=== PATIENT | male | born 1970 | race Caucasian/White ===

== ENCOUNTER 2016-05-26 16:50 | Inpatient (IN) | payer MEDICAID ==
[~2016-05-26] VITALS: Ht 160 cm; Wt 63.6 kg
[~2016-05-26 16:50] MED LIST: GABA-531 PO; LISI-662 PO; OLAN7.5T2 PO; VENL-68 PO
[2016-05-26] MEDS ORDERED: HALOPERIDOL 5 MG TABLET PO PRN (18:15)
[2016-05-26] MEDS ORDERED: PNEUMOCOCCAL VACCINE POLYVALENT 0.5 ML VIAL [PPSV23] IM ONE (18:45)
[2016-05-26 19:00] VITALS: BP 116/74
[2016-05-26 19:16] VITALS: BP 116/75
[2016-05-26] MEDS: GABAPENTIN 300 MG CAPSULE PO SCH (19:35)
[2016-05-26] MEDS: OLANZapine 7.5 MG TABLET PO SCH (20:20)
[2016-05-26] MEDS: LORazepam 2 MG TABLET PO PRN (20:21)
[2016-05-27 06:04] VITALS: BP 114/71
[2016-05-27 08:18] LABS: BASOPHILS % (AUTO) 0.4 % (0.0-2.0); EOSINOPHILS % (AUTO) 3.9 % (1.0-6.0); HEMATOCRIT 42.6 % (41-53); HEMOGLOBIN 14.2 g/dL (13.5-17.5); LYMPHOCYTES # (AUTO) 1.6 K/uL (1.0-4.8); LYMPHOCYTES % (AUTO) 36.7 % (22.0-44.0); MEAN CORPUSCULAR HEMOGLOBIN 28.8 pg (26.0-34.0); MEAN CORPUSCULAR HGB CONC 33.4 G/dL (31.0-37.0); MEAN CORPUSCULAR VOLUME 86 fL (80-100); MONOCYTES # (AUTO) 0.6 K/uL (0.1-1.0); MONOCYTES % (AUTO) 14.3 % (2.0-9.0); NEUTROPHILS % (AUTO) 44.7 % (40.0-70.0); PLATELET COUNT (AUTO) 239 K/uL (150-450); RED BLOOD CELL COUNT(AUTO) 4.94 MIL/uL (4.50-5.90); RED CELL DISTRIBUTION WIDTH 15.5 % (11.5-14.5); WHITE BLOOD COUNT (AUTO) 4.4 K/uL (4.5-11.0)
[2016-05-27 08:31] VITALS: BP 120/75
[2016-05-27 08:36] LABS: HEMOGLOBIN A1C 5.7 % (4.5-6.2)
[2016-05-27] MEDS: VENLAFAXINE HCL 150 MG ER CAPSULE PO SCH (08:39)
[2016-05-27] MEDS: LISINOPRIL 20 MG TABLET PO SCH (08:39)
[2016-05-27] MEDS: GABAPENTIN 300 MG CAPSULE PO SCH ×3 (08:39→16:14)
[2016-05-27] MEDS ORDERED: MAGNESIUM HYDROXIDE SUSPENSION 30 ML UDCUP PO PRN (09:00)
[2016-05-27] MEDS ORDERED: ACETAMINOPHEN 325 MG TABLET PO PRN (09:00)
[2016-05-27] MEDS ORDERED: CloNIDine HCL 0.1 MG TABLET PO PRN (09:00)
[2016-05-27] MEDS ORDERED: IBUPROFEN 600 MG TABLET PO PRN (09:00)
[2016-05-27] MEDS ORDERED: LOPERAMIDE HCL 2 MG CAPSULE PO PRN (09:00)
[2016-05-27] MEDS ORDERED: ONDANSETRON HCL 4 MG TABLET PO PRN (09:00)
[2016-05-27] MEDS ORDERED: BENZOCAINE/MENTHOL LOZENGE MM PRN (09:00)
[2016-05-27] MEDS ORDERED: BACITRACIN 28.4 GM OINTMENT TP PRN (09:00)
[2016-05-27] MEDS ORDERED: PETROLATUM,WHITE 71 GM JELLY TP PRN (09:00)
[2016-05-27] MEDS ORDERED: ALBUTEROL SULFATE HFA 90 MCG/PUFF 8 GM INHALER IH PRN (09:00)
[2016-05-27 09:12] LABS: ALANINE AMINOTRANSFERASE 18 U/L (12-78); ALBUMIN 3.1 g/dL (3.4-5.0); ANION GAP 6 mmol/L (8-16); ASPARTATE AMINOTRANSFERASE 23 U/L (15-37); BILIRUBIN,TOTAL 0.5 mg/dL (0.1-1.0); CALCIUM, TOTAL 8.3 mg/dL (8.8-10.5); CARBON DIOXIDE 30 mmol/L (22-29); CHLORIDE 104 mmol/L (98-107); CHOL/HDL RATIO 3.2 (4.2-7.3); CREATININE 0.84 mg/dL (0.60-1.30); GLOMERULAR FILTR. RATE CALC > 60 mL/min (>60); POTASSIUM 3.5 mmol/L (3.5-5.1); SODIUM SERUM 140 mmol/L (136-145); THYROID STIMULATING HORMONE 0.98 uIU/mL (0.36-3.74); TOTAL PROTEIN, SERUM 6.4 g/dL (6.4-8.2); UREA NITROGEN, BLOOD 17 mg/dL (7-18)
[2016-05-27 16:31] VITALS: BP 118/67
[2016-05-27] MEDS: OLANZapine 7.5 MG TABLET PO SCH (20:14)
[2016-05-28 01:20] VITALS: BP 112/70
[2016-05-28 06:53] VITALS: BP 114/76
[2016-05-28] MEDS: LORazepam 2 MG TABLET PO PRN ×4 (06:56→20:54)
[2016-05-28 08:40] VITALS: BP 123/72
[2016-05-28] MEDS: LISINOPRIL 20 MG TABLET PO SCH (08:46)
[2016-05-28] MEDS: VENLAFAXINE HCL 150 MG ER CAPSULE PO SCH (08:46)
[2016-05-28] MEDS: GABAPENTIN 300 MG CAPSULE PO SCH ×3 (08:46→16:48)
[2016-05-28 16:17] VITALS: BP 126/67
[2016-05-28] MEDS: OLANZapine 7.5 MG TABLET PO SCH (20:43)
[2016-05-29 05:46] VITALS: BP 126/80
[2016-05-29] MEDS: LORazepam 2 MG TABLET PO PRN ×3 (08:27→16:56)
[2016-05-29] MEDS: LISINOPRIL 20 MG TABLET PO SCH (08:27)
[2016-05-29] MEDS: GABAPENTIN 300 MG CAPSULE PO SCH ×3 (08:27→16:56)
[2016-05-29] MEDS: VENLAFAXINE HCL 150 MG ER CAPSULE PO SCH (08:27)
[2016-05-29 08:43] VITALS: BP 122/78
[2016-05-29 16:52] VITALS: BP 100/62
[2016-05-29] MEDS: ZOLPIDEM TARTRATE 10 MG TABLET PO PRN (20:19)
[2016-05-29] MEDS: OLANZapine 7.5 MG TABLET PO SCH (21:00)
[2016-05-30 04:28] VITALS: BP 124/90
[2016-05-30] MEDS: LORazepam 2 MG TABLET PO PRN ×4 (04:30→18:15)
[2016-05-30 08:20] VITALS: BP 130/90
[2016-05-30] MEDS: VENLAFAXINE HCL 150 MG ER CAPSULE PO SCH (09:14)
[2016-05-30] MEDS: LISINOPRIL 20 MG TABLET PO SCH (09:14)
[2016-05-30] MEDS: GABAPENTIN 300 MG CAPSULE PO SCH ×3 (09:14→16:28)
[2016-05-30 13:34] VITALS: BP 128/84
[2016-05-30] MEDS: MAG HYDROX/AL HYDROX/SIMETH ES 30 ML SUSPENSION UDCUP PO PRN (13:34)
[2016-05-30] MEDS: TraMADol HCL 50 MG TABLET PO PRN (13:34)
[2016-05-30 16:10] VITALS: BP 115/78
[2016-05-30] MEDS: OLANZapine 7.5 MG TABLET PO SCH (20:19)
[2016-05-30] MEDS: ZOLPIDEM TARTRATE 10 MG TABLET PO PRN (20:50)
[2016-05-31 00:25] VITALS: BP 124/85
[2016-05-31] MEDS: LORazepam 2 MG TABLET PO PRN ×4 (07:00→20:23)
[2016-05-31 08:11] VITALS: BP 116/80
[2016-05-31] MEDS: LISINOPRIL 20 MG TABLET PO SCH (09:37)
[2016-05-31] MEDS: GABAPENTIN 300 MG CAPSULE PO SCH ×3 (09:37→16:17)
[2016-05-31] MEDS: VENLAFAXINE HCL 150 MG ER CAPSULE PO SCH (09:38)
[2016-05-31 10:50] VITALS: BP 124/76
[2016-05-31] MEDS: TraMADol HCL 50 MG TABLET PO PRN (10:57)
[2016-05-31 16:12] VITALS: BP 110/74
[2016-05-31] MEDS: ZOLPIDEM TARTRATE 10 MG TABLET PO PRN (20:09)
[2016-05-31] MEDS: OLANZapine 7.5 MG TABLET PO SCH (20:09)
[2016-06-01 00:55] VITALS: BP 125/87
[2016-06-01] MEDS: LORazepam 2 MG TABLET PO PRN ×4 (07:01→21:03)
[2016-06-01 08:52] VITALS: BP 133/72
[2016-06-01] MEDS: VENLAFAXINE HCL 150 MG ER CAPSULE PO SCH (09:17)
[2016-06-01] MEDS: LISINOPRIL 20 MG TABLET PO SCH (09:17)
[2016-06-01] MEDS: GABAPENTIN 300 MG CAPSULE PO SCH ×3 (09:17→17:10)
[2016-06-01] MEDS: TraMADol HCL 50 MG TABLET PO PRN (15:40)
[2016-06-01 15:41] VITALS: BP 130/78
[2016-06-01 16:19] VITALS: BP 125/78
[2016-06-01] MEDS: MAG HYDROX/AL HYDROX/SIMETH ES 30 ML SUSPENSION UDCUP PO PRN (20:13)
[2016-06-01] MEDS: OLANZapine 7.5 MG TABLET PO SCH (21:00)
[2016-06-01] MEDS: ZOLPIDEM TARTRATE 10 MG TABLET PO PRN (21:45)
[2016-06-02 06:58] VITALS: BP 133/92
[2016-06-02] MEDS: LORazepam 2 MG TABLET PO PRN ×2 (07:03→11:04)
[2016-06-02] MEDS: VENLAFAXINE HCL 150 MG ER CAPSULE PO SCH (08:31)
[2016-06-02] MEDS: LISINOPRIL 20 MG TABLET PO SCH (08:31)
[2016-06-02] MEDS: GABAPENTIN 300 MG CAPSULE PO SCH ×2 (08:31→12:49)
[2016-06-02] MEDS: TraMADol HCL 50 MG TABLET PO PRN (08:31)
[2016-06-02 09:00] VITALS: BP 122/78
== END 2016-06-02 13:45 | disposition home or self-care (01) | DRG 750 ==
LOC: B2S 18:12
PROVIDERS: ADMIT Psychiatry & Neurology Psychiatry; ATTEND Psychiatry & Neurology Psychiatry
DX: F25.9 Schizoaffective disorder, unspecified (principal); R45.851 Suicidal ideations; E55.9 Vitamin D deficiency, unspecified; I10 Essential (primary) hypertension; J44.9 Chronic obstructive pulmonary disease, unspecified; B18.2 Chronic viral hepatitis C; K59.00 Constipation, unspecified; F15.10 Other stimulant abuse, uncomplicated; F17.200 Nicotine dependence, unspecified, uncomplicated; F12.90 Cannabis use, unspecified, uncomplicated; Z98.890 Other specified postprocedural states; Z59.0 Homelessness; Z71.51 Drug abuse counseling and surveillance of drug abuser; Z71.6 Tobacco abuse counseling; Z28.21 Immunization not carried out because of patient refusal
CPT/HCPCS: 83036; 84439; 84443; 87081

== ENCOUNTER 2016-07-18 11:23 | Inpatient (IN) | payer MEDICAID ==
[~2016-07-18] VITALS: Ht 162.6 cm; Wt 65.1 kg
[2016-07-18] MEDS ORDERED: HALOPERIDOL 5 MG TABLET PO PRN (13:30)
[2016-07-18 13:35] VITALS: BP 123/91
[2016-07-18] MEDS ORDERED: PNEUMOCOCCAL VACCINE POLYVALENT 0.5 ML VIAL [PPSV23] IM ONE (14:00)
[2016-07-18] MEDS: LORazepam 2 MG TABLET PO PRN ×2 (14:06→18:12)
[2016-07-18 14:08] VITALS: BP 136/100
[2016-07-18 16:22] VITALS: BP 138/85
[2016-07-18] MEDS: GABAPENTIN 300 MG CAPSULE PO SCH (18:12)
[2016-07-18] MEDS: QUEtiapine FUMARATE 100 MG TABLET PO SCH (18:13)
[2016-07-18] MEDS: ZOLPIDEM TARTRATE 10 MG TABLET PO PRN (20:56)
[2016-07-19] MEDS ORDERED: -PHARMACY VACCINE NOTE- MISC ONE ×2 (06:00)
[2016-07-19 07:03] VITALS: BP 119/68
[2016-07-19 08:46] VITALS: BP 136/77
[2016-07-19] MEDS: VENLAFAXINE HCL 150 MG ER CAPSULE PO SCH (09:27)
[2016-07-19] MEDS: QUEtiapine FUMARATE 100 MG TABLET PO SCH ×2 (09:28→16:51)
[2016-07-19] MEDS: GABAPENTIN 300 MG CAPSULE PO SCH ×3 (09:28→16:51)
[2016-07-19] MEDS: LORazepam 2 MG TABLET PO PRN ×2 (11:02→16:51)
[2016-07-19] MEDS ORDERED: ONDANSETRON HCL 4 MG TABLET PO PRN (13:45)
[2016-07-19] MEDS ORDERED: BENZOCAINE/MENTHOL LOZENGE MM PRN (13:45)
[2016-07-19] MEDS ORDERED: IBUPROFEN 600 MG TABLET PO PRN (13:45)
[2016-07-19] MEDS ORDERED: CloNIDine HCL 0.1 MG TABLET PO PRN (13:45)
[2016-07-19] MEDS ORDERED: BACITRACIN 28.4 GM OINTMENT TP PRN (13:45)
[2016-07-19] MEDS ORDERED: MAGNESIUM HYDROXIDE SUSPENSION 30 ML UDCUP PO PRN (13:45)
[2016-07-19] MEDS ORDERED: ACETAMINOPHEN 325 MG TABLET PO PRN (13:45)
[2016-07-19] MEDS ORDERED: MAG HYDROX/AL HYDROX/SIMETH ES 30 ML SUSPENSION UDCUP PO PRN (13:45)
[2016-07-19] MEDS ORDERED: PETROLATUM,WHITE 71 GM JELLY TP PRN (13:45)
[2016-07-19] MEDS ORDERED: ALBUTEROL SULFATE HFA 90 MCG/PUFF 8 GM INHALER IH PRN (13:45)
[2016-07-19 16:15] VITALS: BP 102/64
[2016-07-19] MEDS: ZOLPIDEM TARTRATE 10 MG TABLET PO PRN (20:29)
[2016-07-20 04:48] VITALS: BP 138/71
[2016-07-20] MEDS: LORazepam 2 MG TABLET PO PRN ×3 (04:50→18:04)
[2016-07-20] MEDS: QUEtiapine FUMARATE 100 MG TABLET PO SCH ×3 (09:30→16:40)
[2016-07-20] MEDS: VENLAFAXINE HCL 150 MG ER CAPSULE PO SCH (09:30)
[2016-07-20] MEDS: GABAPENTIN 300 MG CAPSULE PO SCH ×3 (09:30→16:36)
[2016-07-20] MEDS: CHOLECALCIFEROL (VIT D3) 1,000 UNITS TABLET PO SCH (09:30)
[2016-07-20 16:16] VITALS: BP 126/62
[2016-07-21] MEDS: LOPERAMIDE HCL 2 MG CAPSULE PO PRN ×3 (03:00→16:12)
[2016-07-21 05:55] VITALS: BP 120/60
[2016-07-21] MEDS: QUEtiapine FUMARATE 100 MG TABLET PO SCH ×2 (08:28→16:12)
[2016-07-21] MEDS: LORazepam 2 MG TABLET PO PRN ×2 (08:31→13:32)
[2016-07-21] MEDS: GABAPENTIN 300 MG CAPSULE PO SCH ×3 (08:31→16:12)
[2016-07-21] MEDS: CHOLECALCIFEROL (VIT D3) 1,000 UNITS TABLET PO SCH (08:31)
[2016-07-21] MEDS: VENLAFAXINE HCL 150 MG ER CAPSULE PO SCH (08:33)
[2016-07-21 08:59] LABS: BASOPHILS % (AUTO) 0.4 % (0.0-2.0); EOSINOPHILS % (AUTO) 2.4 % (1.0-6.0); HEMATOCRIT 45.2 % (41-53); HEMOGLOBIN 14.6 g/dL (13.5-17.5); LYMPHOCYTES # (AUTO) 1.8 K/uL (1.0-4.8); MEAN CORPUSCULAR HEMOGLOBIN 28.6 pg (26.0-34.0); MEAN CORPUSCULAR HGB CONC 32.4 G/dL (31.0-37.0); MEAN CORPUSCULAR VOLUME 88 fL (80-100); MONOCYTES # (AUTO) 0.8 K/uL (0.1-1.0); MONOCYTES % (AUTO) 12.7 % (2.0-9.0); NEUTROPHILS # (AUTO) 3.7 K/uL (1.8-7.7); NEUTROPHILS % (AUTO) 57.5 % (40.0-70.0); PLATELET COUNT (AUTO) 257 K/uL (150-450); RED BLOOD CELL COUNT(AUTO) 5.12 MIL/uL (4.50-5.90); RED CELL DISTRIBUTION WIDTH 15.1 % (11.5-14.5); WHITE BLOOD COUNT (AUTO) 6.5 K/uL (4.5-11.0)
[2016-07-21 09:01] VITALS: BP 137/89
[2016-07-21 09:14] LABS: ALANINE AMINOTRANSFERASE 59 U/L (12-78); ALBUMIN 3.5 g/dL (3.4-5.0); ANION GAP 8 mmol/L (8-16); ASPARTATE AMINOTRANSFERASE 44 U/L (15-37); BILIRUBIN,TOTAL 0.3 mg/dL (0.1-1.0); CALCIUM, TOTAL 8.4 mg/dL (8.8-10.5); CARBON DIOXIDE 29 mmol/L (22-29); CHLORIDE 106 mmol/L (98-107); CREATININE 0.88 mg/dL (0.60-1.30); GLOMERULAR FILTR. RATE CALC > 60 mL/min (>60); POTASSIUM 4.5 mmol/L (3.5-5.1); SODIUM SERUM 143 mmol/L (136-145); TOTAL PROTEIN, SERUM 6.8 g/dL (6.4-8.2); UREA NITROGEN, BLOOD 13 mg/dL (7-18)
[2016-07-21 16:18] VITALS: BP 127/95
[2016-07-22 00:53] VITALS: BP 100/61
[2016-07-22] MEDS: LOPERAMIDE HCL 2 MG CAPSULE PO PRN ×2 (01:16→09:03)
[2016-07-22] MEDS: LORazepam 2 MG TABLET PO PRN ×4 (01:23→16:54)
[2016-07-22 08:24] VITALS: BP 113/71
[2016-07-22] MEDS: GABAPENTIN 300 MG CAPSULE PO SCH ×3 (08:58→16:39)
[2016-07-22] MEDS: CHOLECALCIFEROL (VIT D3) 1,000 UNITS TABLET PO SCH (08:58)
[2016-07-22] MEDS: VENLAFAXINE HCL 150 MG ER CAPSULE PO SCH (08:58)
[2016-07-22] MEDS: QUEtiapine FUMARATE 100 MG TABLET PO SCH ×2 (08:59→16:39)
[2016-07-22 16:13] VITALS: BP 125/75
[2016-07-22] MEDS ORDERED: VITAD1000 PO (21:04)
[2016-07-22] MEDS ORDERED: QUET100T PO (21:04)
[2016-07-23] MEDS ORDERED: GABA-531 PO (04:58)
[2016-07-23 06:11] VITALS: BP 117/87
== END 2016-07-23 07:35 | disposition home or self-care (01) | DRG 750 ==
LOC: B2S 13:32 → EDSTATUS 13:54
PROVIDERS: ADMIT Psychiatry & Neurology Psychiatry; ATTEND Psychiatry & Neurology Child & Adolescent Psychiatry
DX: F25.9 Schizoaffective disorder, unspecified (principal); F33.2 Major depressive disorder, recurrent severe without psychotic features; R45.851 Suicidal ideations; F15.20 Other stimulant dependence, uncomplicated; E55.9 Vitamin D deficiency, unspecified; B18.2 Chronic viral hepatitis C; I10 Essential (primary) hypertension; F17.200 Nicotine dependence, unspecified, uncomplicated; F23 Brief psychotic disorder; J44.9 Chronic obstructive pulmonary disease, unspecified; E58 Dietary calcium deficiency; F12.90 Cannabis use, unspecified, uncomplicated; M54.9 Dorsalgia, unspecified; Z91.5 Personal history of self-harm; Z59.0 Homelessness; Z71.51 Drug abuse counseling and surveillance of drug abuser; Z71.6 Tobacco abuse counseling; Z72.89 Other problems related to lifestyle; Z71.41 Alcohol abuse counseling and surveillance of alcoholic; Z79.899 Other long term (current) drug therapy; Z28.21 Immunization not carried out because of patient refusal

== ENCOUNTER 2016-07-23 12:25 | Inpatient (IN) | payer MEDICAID, OTHER ==
[~2016-07-23] VITALS: Ht 160 cm; Wt 68.0 kg
[~2016-07-23 12:25] MED LIST changes: +QUET100T PO; +VITAD1000 PO
[2016-07-23] MEDS ORDERED: HydrOXYzine PAMOATE 50 MG CAPSULE PO ONE (13:45)
[2016-07-23 14:44] LABS: BASOPHILS % (AUTO) 0.2 % (0.0-2.0); HEMATOCRIT 41.2 % (41-53); HEMOGLOBIN 13.7 g/dL (13.5-17.5); LYMPHOCYTES # (AUTO) 1.2 K/uL (1.0-4.8); LYMPHOCYTES % (AUTO) 23.1 % (22.0-44.0); MEAN CORPUSCULAR HEMOGLOBIN 28.8 pg (26.0-34.0); MEAN CORPUSCULAR HGB CONC 33.1 G/dL (31.0-37.0); MEAN CORPUSCULAR VOLUME 87 fL (80-100); MONOCYTES # (AUTO) 0.6 K/uL (0.1-1.0); MONOCYTES % (AUTO) 11.4 % (2.0-9.0); NEUTROPHILS # (AUTO) 3.4 K/uL (1.8-7.7); NEUTROPHILS % (AUTO) 64.3 % (40.0-70.0); PLATELET COUNT (AUTO) 248 K/uL (150-450); RED BLOOD CELL COUNT(AUTO) 4.75 MIL/uL (4.50-5.90); RED CELL DISTRIBUTION WIDTH 14.7 % (11.5-14.5); WHITE BLOOD COUNT (AUTO) 5.3 K/uL (4.5-11.0)
[2016-07-23 14:56] LABS: ANION GAP 6 mmol/L (8-16); CALCIUM, TOTAL 7.7 mg/dL (8.8-10.5); CARBON DIOXIDE 29 mmol/L (22-29); CHLORIDE 106 mmol/L (98-107); CREATININE 0.78 mg/dL (0.60-1.30); GLOMERULAR FILTR. RATE CALC > 60 mL/min (>60); POTASSIUM 3.9 mmol/L (3.5-5.1); SODIUM SERUM 141 mmol/L (136-145); UREA NITROGEN, BLOOD 15 mg/dL (7-18)
[2016-07-23 15:02] LABS: ALANINE AMINOTRANSFERASE 54 U/L (12-78); ALBUMIN 3.1 g/dL (3.4-5.0); ASPARTATE AMINOTRANSFERASE 38 U/L (15-37); BILIRUBIN,TOTAL 0.2 mg/dL (0.1-1.0); TOTAL PROTEIN, SERUM 6.5 g/dL (6.4-8.2)
[2016-07-23] MEDS ORDERED: HALOPERIDOL 5 MG TABLET PO PRN (15:15)
[2016-07-23] MEDS: LORazepam 2 MG TABLET PO PRN ×2 (16:03→20:47)
[2016-07-23] MEDS: GABAPENTIN 300 MG CAPSULE PO SCH (16:57)
[2016-07-23] MEDS: QUEtiapine FUMARATE 100 MG TABLET PO SCH (17:52)
[2016-07-23 18:41] VITALS: BP 134/94
[2016-07-23] MEDS ORDERED: LOPERAMIDE HCL 2 MG CAPSULE PO PRN (20:00)
[2016-07-23] MEDS: ZOLPIDEM TARTRATE 10 MG TABLET PO PRN (21:24)
[2016-07-24] MEDS: LORazepam 2 MG TABLET PO PRN ×3 (04:04→18:01)
[2016-07-24 04:05] VITALS: BP 120/69
[2016-07-24] MEDS ORDERED: PETROLATUM,WHITE 71 GM JELLY TP PRN (08:00)
[2016-07-24] MEDS ORDERED: CloNIDine HCL 0.1 MG TABLET PO PRN (08:00)
[2016-07-24] MEDS ORDERED: ALBUTEROL SULFATE HFA 90 MCG/PUFF 8 GM INHALER IH PRN (08:00)
[2016-07-24] MEDS ORDERED: MAGNESIUM HYDROXIDE SUSPENSION 30 ML UDCUP PO PRN (08:00)
[2016-07-24] MEDS ORDERED: ONDANSETRON HCL 4 MG TABLET PO PRN (08:00)
[2016-07-24] MEDS ORDERED: BENZOCAINE/MENTHOL LOZENGE [8 LOZENGES/PACKET] MM PRN (08:00)
[2016-07-24] MEDS ORDERED: MAG HYDROX/AL HYDROX/SIMETH ES 30 ML SUSPENSION UDCUP PO PRN (08:00)
[2016-07-24] MEDS ORDERED: LOPERAMIDE HCL 2 MG CAPSULE PO PRN (08:00)
[2016-07-24] MEDS ORDERED: ACETAMINOPHEN 325 MG TABLET PO PRN (08:00)
[2016-07-24] MEDS ORDERED: BACITRACIN 28.4 GM OINTMENT TP PRN (08:00)
[2016-07-24] MEDS ORDERED: IBUPROFEN 600 MG TABLET PO PRN (08:00)
[2016-07-24] MEDS: QUEtiapine FUMARATE 100 MG TABLET PO SCH ×2 (08:28→17:27)
[2016-07-24] MEDS: VENLAFAXINE HCL 150 MG ER CAPSULE PO SCH (08:28)
[2016-07-24] MEDS: PANTOPRAZOLE SODIUM 40 MG DR TABLET PO SCH (08:29)
[2016-07-24] MEDS: GABAPENTIN 300 MG CAPSULE PO SCH ×3 (08:29→17:26)
[2016-07-24 09:44] VITALS: BP 136/80
[2016-07-24] MEDS: CHOLECALCIFEROL (VIT D3) 1,000 UNITS TABLET PO SCH (12:14)
[2016-07-24 17:00] VITALS: BP 123/78
[2016-07-25 02:07] VITALS: BP 125/76
[2016-07-25] MEDS: LORazepam 2 MG TABLET PO PRN ×4 (02:08→18:26)
[2016-07-25 08:06] VITALS: BP 114/86
[2016-07-25] MEDS: VENLAFAXINE HCL 150 MG ER CAPSULE PO SCH (08:29)
[2016-07-25] MEDS: GABAPENTIN 300 MG CAPSULE PO SCH ×3 (08:29→16:03)
[2016-07-25] MEDS: QUEtiapine FUMARATE 100 MG TABLET PO SCH ×2 (08:30→16:03)
[2016-07-25] MEDS: CHOLECALCIFEROL (VIT D3) 1,000 UNITS TABLET PO SCH (08:30)
[2016-07-25] MEDS: PANTOPRAZOLE SODIUM 40 MG DR TABLET PO SCH (08:30)
[2016-07-25 16:19] VITALS: BP 132/78
[2016-07-25] MEDS: ZOLPIDEM TARTRATE 10 MG TABLET PO PRN (20:07)
[2016-07-26] MEDS: LORazepam 2 MG TABLET PO PRN ×4 (03:29→18:26)
[2016-07-26 08:45] VITALS: BP 128/89
[2016-07-26] MEDS: PANTOPRAZOLE SODIUM 40 MG DR TABLET PO SCH ×2 (09:00→11:42)
[2016-07-26] MEDS: VENLAFAXINE HCL 150 MG ER CAPSULE PO SCH ×2 (09:00→11:42)
[2016-07-26] MEDS: CHOLECALCIFEROL (VIT D3) 1,000 UNITS TABLET PO SCH ×2 (09:00→11:42)
[2016-07-26] MEDS: GABAPENTIN 300 MG CAPSULE PO SCH ×3 (09:00→16:18)
[2016-07-26] MEDS: QUEtiapine FUMARATE 100 MG TABLET PO SCH ×3 (09:00→16:18)
[2016-07-26 16:19] VITALS: BP 135/77
[2016-07-26] MEDS: ZOLPIDEM TARTRATE 10 MG TABLET PO PRN (22:24)
[2016-07-27] MEDS: LORazepam 2 MG TABLET PO PRN ×4 (05:30→19:00)
[2016-07-27 06:17] VITALS: BP 141/78
[2016-07-27 08:30] VITALS: BP 154/84
[2016-07-27] MEDS: GABAPENTIN 300 MG CAPSULE PO SCH ×3 (08:53→16:17)
[2016-07-27] MEDS: QUEtiapine FUMARATE 100 MG TABLET PO SCH ×2 (08:53→16:17)
[2016-07-27] MEDS: PANTOPRAZOLE SODIUM 40 MG DR TABLET PO SCH (08:53)
[2016-07-27] MEDS: CHOLECALCIFEROL (VIT D3) 1,000 UNITS TABLET PO SCH (08:54)
[2016-07-27] MEDS: VENLAFAXINE HCL 150 MG ER CAPSULE PO SCH (08:54)
[2016-07-27 17:54] VITALS: BP 105/72
[2016-07-27] MEDS: ZOLPIDEM TARTRATE 10 MG TABLET PO PRN (21:46)
[2016-07-28] MEDS: LORazepam 2 MG TABLET PO PRN ×2 (05:43→11:09)
[2016-07-28 08:15] VITALS: BP 133/84
[2016-07-28] MEDS ORDERED: PANT40TA25 PO (09:09)
[2016-07-28] MEDS: VENLAFAXINE HCL 150 MG ER CAPSULE PO SCH (09:33)
[2016-07-28] MEDS: QUEtiapine FUMARATE 100 MG TABLET PO SCH (09:34)
[2016-07-28] MEDS: CHOLECALCIFEROL (VIT D3) 1,000 UNITS TABLET PO SCH (09:34)
[2016-07-28] MEDS: GABAPENTIN 300 MG CAPSULE PO SCH ×2 (09:34→12:47)
[2016-07-28] MEDS: PANTOPRAZOLE SODIUM 40 MG DR TABLET PO SCH (09:34)
== END 2016-07-28 15:10 | disposition home or self-care (01) | DRG 753 ==
LOC: EMS 12:27 → 3EI 17:41
PROVIDERS: ADMIT Psychiatry & Neurology Child & Adolescent Psychiatry; ATTEND Psychiatry & Neurology Child & Adolescent Psychiatry
DX: F31.4 Bipolar disorder, current episode depressed, severe, without psychotic features (principal); E55.9 Vitamin D deficiency, unspecified; R45.851 Suicidal ideations; I10 Essential (primary) hypertension; J44.9 Chronic obstructive pulmonary disease, unspecified; F25.9 Schizoaffective disorder, unspecified; M54.5 Low back pain; F15.10 Other stimulant abuse, uncomplicated; F17.200 Nicotine dependence, unspecified, uncomplicated; B19.20 Unspecified viral hepatitis C without hepatic coma; F12.90 Cannabis use, unspecified, uncomplicated; Z71.6 Tobacco abuse counseling; Z72.89 Other problems related to lifestyle; Z71.41 Alcohol abuse counseling and surveillance of alcoholic
CPT/HCPCS: 82306; 87081; 99285; G0480; J3535

== ENCOUNTER 2016-12-03 23:07 | Inpatient (IN) | payer MEDICAID ==
[~2016-12-03] VITALS: Ht 160 cm; Wt 64.9 kg
[~2016-12-03 23:07] MED LIST changes: -LISI-662 PO; -OLAN7.5T2 PO; +PANT40TA25 PO
[2016-12-04] MEDS ORDERED: HALOPERIDOL 5 MG TABLET PO PRN (02:30)
[2016-12-04] MEDS: ZOLPIDEM TARTRATE 10 MG TABLET PO PRN (02:54)
[2016-12-04] MEDS: LORazepam 1 MG TABLET PO PRN ×4 (02:54→20:46)
[2016-12-04 03:02] VITALS: BP 150/96
[2016-12-04] MEDS ORDERED: PNEUMOCOCCAL VACCINE POLYVALENT 0.5 ML VIAL [PPSV23] IM ONE (04:00)
[2016-12-04 08:30] VITALS: BP 133/82
[2016-12-04] MEDS ORDERED: MAGNESIUM HYDROXIDE SUSPENSION 30 ML UDCUP PO PRN (10:15)
[2016-12-04] MEDS ORDERED: ALBUTEROL SULFATE HFA 90 MCG/PUFF 8 GM INHALER IH PRN (10:15)
[2016-12-04] MEDS ORDERED: LOPERAMIDE HCL 2 MG CAPSULE PO PRN (10:15)
[2016-12-04] MEDS ORDERED: PETROLATUM,WHITE 71 GM JELLY TP PRN (10:15)
[2016-12-04] MEDS ORDERED: BENZOCAINE/MENTHOL LOZENGE MM PRN (10:15)
[2016-12-04] MEDS ORDERED: BACITRACIN 28.4 GM OINTMENT TP PRN (10:15)
[2016-12-04] MEDS ORDERED: MAG HYDROX/AL HYDROX/SIMETH ES 30 ML SUSPENSION UDCUP PO PRN (10:15)
[2016-12-04] MEDS ORDERED: CloNIDine HCL 0.1 MG TABLET PO PRN (10:15)
[2016-12-04] MEDS ORDERED: ONDANSETRON HCL 4 MG TABLET PO PRN (10:15)
[2016-12-04] MEDS ORDERED: ACETAMINOPHEN 325 MG TABLET PO PRN (10:15)
[2016-12-04] MEDS: PANTOPRAZOLE SODIUM 40 MG DR TABLET PO SCH (10:34)
[2016-12-04] MEDS: GABAPENTIN 300 MG CAPSULE PO SCH ×3 (10:34→16:16)
[2016-12-04] MEDS: BACLOFEN 10 MG TABLET PO SCH (16:16)
[2016-12-04 16:26] VITALS: BP 123/88
[2016-12-04] MEDS: QUEtiapine FUMARATE 100 MG TABLET PO SCH (17:15)
[2016-12-05] MEDS: ZOLPIDEM TARTRATE 10 MG TABLET PO PRN (00:36)
[2016-12-05] MEDS: LORazepam 1 MG TABLET PO PRN ×5 (00:36→20:36)
[2016-12-05 00:49] VITALS: BP 124/75
[2016-12-05] MEDS: VENLAFAXINE HCL 150 MG ER CAPSULE PO SCH (08:06)
[2016-12-05] MEDS: PANTOPRAZOLE SODIUM 40 MG DR TABLET PO SCH (08:06)
[2016-12-05] MEDS: GABAPENTIN 300 MG CAPSULE PO SCH ×3 (08:06→16:04)
[2016-12-05] MEDS: BACLOFEN 10 MG TABLET PO SCH ×2 (08:07→16:04)
[2016-12-05] MEDS: CHOLECALCIFEROL (VIT D3) 1,000 UNITS TABLET PO SCH (08:07)
[2016-12-05] MEDS: QUEtiapine FUMARATE 100 MG TABLET PO SCH ×2 (08:07→16:04)
[2016-12-05 08:08] VITALS: BP 158/92
[2016-12-05] MEDS: NICOTINE 21 MG/24 HOUR PATCH TD SCH (08:08)
[2016-12-05] MEDS: TraMADol HCL 50 MG TABLET PO PRN ×2 (13:48→20:37)
[2016-12-05 16:20] VITALS: BP 132/84
[2016-12-06 02:15] VITALS: BP 132/81
[2016-12-06] MEDS: LORazepam 1 MG TABLET PO PRN ×5 (02:19→22:12)
[2016-12-06] MEDS: TraMADol HCL 50 MG TABLET PO PRN ×4 (02:19→22:12)
[2016-12-06] MEDS: ZOLPIDEM TARTRATE 10 MG TABLET PO PRN ×2 (02:19→22:12)
[2016-12-06] MEDS: GABAPENTIN 300 MG CAPSULE PO SCH ×3 (08:06→16:04)
[2016-12-06] MEDS: QUEtiapine FUMARATE 100 MG TABLET PO SCH ×2 (08:06→16:05)
[2016-12-06] MEDS: CHOLECALCIFEROL (VIT D3) 1,000 UNITS TABLET PO SCH (08:06)
[2016-12-06] MEDS: PANTOPRAZOLE SODIUM 40 MG DR TABLET PO SCH (08:06)
[2016-12-06] MEDS: VENLAFAXINE HCL 150 MG ER CAPSULE PO SCH (08:06)
[2016-12-06] MEDS: NICOTINE 21 MG/24 HOUR PATCH TD SCH (08:07)
[2016-12-06] MEDS: BACLOFEN 10 MG TABLET PO SCH ×2 (08:07→16:04)
[2016-12-06 08:16] LABS: BASOPHILS # (AUTO) 0.02 K/uL (0.00-0.20); BASOPHILS % (AUTO) 0.4 % (0.0-2.0); EOSINOPHILS # (AUTO) 0.15 K/uL (0.00-0.70); EOSINOPHILS % (AUTO) 3.73 % (1.0-6.0); HEMATOCRIT 39.5 % (41-53); HEMOGLOBIN 13.1 g/dL (13.5-17.5); LYMPHOCYTES # (AUTO) 1.6 K/uL (1.0-4.8); LYMPHOCYTES % (AUTO) 39.6 % (22.0-44.0); MEAN CORPUSCULAR HGB CONC 33.2 G/dL (31.0-37.0); MEAN CORPUSCULAR VOLUME 87 fL (80-100); MONOCYTES # (AUTO) 0.4 K/uL (0.1-1.0); MONOCYTES % (AUTO) 10.7 % (2.0-9.0); NEUTROPHILS # (AUTO) 1.9 K/uL (1.8-7.7); NEUTROPHILS % (AUTO) 45.6 % (40.0-70.0); PLATELET COUNT (AUTO) 266 K/uL (150-450); RED BLOOD CELL COUNT(AUTO) 4.52 MIL/uL (4.50-5.90); RED CELL DISTRIBUTION WIDTH 14.5 % (11.5-14.5); WHITE BLOOD COUNT (AUTO) 4.1 K/uL (4.5-11.0)
[2016-12-06 08:29] VITALS: BP 133/81
[2016-12-06 08:35] LABS: ALANINE AMINOTRANSFERASE 21 U/L (12-78); ALBUMIN 3.2 g/dL (3.4-5.0); ANION GAP 9 mmol/L (8-16); ASPARTATE AMINOTRANSFERASE 21 U/L (15-37); BILIRUBIN,TOTAL 0.3 mg/dL (0.1-1.0); CALCIUM, TOTAL 8.9 mg/dL (8.8-10.5); CARBON DIOXIDE 27 mmol/L (22-29); CHLORIDE 104 mmol/L (98-107); CREATININE 0.84 mg/dL (0.60-1.30); GLOMERULAR FILTR. RATE CALC > 60 mL/min (>60); POTASSIUM 3.6 mmol/L (3.5-5.1); SODIUM SERUM 140 mmol/L (136-145); THYROID STIMULATING HORMONE 1.35 uIU/mL (0.36-3.74); TOTAL PROTEIN, SERUM 6.5 g/dL (6.4-8.2); UREA NITROGEN, BLOOD 18 mg/dL (7-18)
[2016-12-06 09:31] VITALS: BP 128/76
[2016-12-06 16:02] VITALS: BP 138/88
[2016-12-07 00:55] VITALS: BP 144/86
[2016-12-07] MEDS: LORazepam 1 MG TABLET PO PRN ×5 (01:57→20:23)
[2016-12-07] MEDS: TraMADol HCL 50 MG TABLET PO PRN ×3 (05:27→18:12)
[2016-12-07] MEDS: VENLAFAXINE HCL 150 MG ER CAPSULE PO SCH (08:40)
[2016-12-07] MEDS: CHOLECALCIFEROL (VIT D3) 1,000 UNITS TABLET PO SCH (08:40)
[2016-12-07] MEDS: NICOTINE 21 MG/24 HOUR PATCH TD SCH (08:40)
[2016-12-07] MEDS: PANTOPRAZOLE SODIUM 40 MG DR TABLET PO SCH (08:40)
[2016-12-07] MEDS: GABAPENTIN 300 MG CAPSULE PO SCH ×3 (08:40→16:01)
[2016-12-07] MEDS: QUEtiapine FUMARATE 100 MG TABLET PO SCH ×2 (08:40→17:00)
[2016-12-07] MEDS: BACLOFEN 10 MG TABLET PO SCH ×2 (08:40→16:01)
[2016-12-07 08:46] LABS: HEPATITIS Bs ANTIGEN SCREEN P Negative (Negative); HEPATITIS C AB SCREEN >11.0 s/co ratio (0.0-0.9)
[2016-12-07 10:14] VITALS: BP 151/91
[2016-12-07 12:14] VITALS: BP 135/87
[2016-12-07 16:17] VITALS: BP 137/88
[2016-12-07 18:08] VITALS: BP 133/83
[2016-12-07] MEDS: ZOLPIDEM TARTRATE 10 MG TABLET PO PRN (22:32)
[2016-12-08] MEDS: TraMADol HCL 50 MG TABLET PO PRN ×2 (00:53→07:59)
[2016-12-08] MEDS: LORazepam 1 MG TABLET PO PRN ×4 (00:53→19:51)
[2016-12-08 00:56] VITALS: BP 137/85
[2016-12-08] MEDS: PANTOPRAZOLE SODIUM 40 MG DR TABLET PO SCH (07:59)
[2016-12-08] MEDS: GABAPENTIN 300 MG CAPSULE PO SCH ×3 (07:59→16:29)
[2016-12-08] MEDS: CHOLECALCIFEROL (VIT D3) 1,000 UNITS TABLET PO SCH (07:59)
[2016-12-08] MEDS: VENLAFAXINE HCL 150 MG ER CAPSULE PO SCH (07:59)
[2016-12-08] MEDS: QUEtiapine FUMARATE 100 MG TABLET PO SCH ×3 (08:00→16:30)
[2016-12-08] MEDS: BACLOFEN 10 MG TABLET PO SCH ×2 (08:01→16:29)
[2016-12-08] MEDS: NICOTINE 21 MG/24 HOUR PATCH TD SCH (08:01)
[2016-12-08] MEDS: LISINOPRIL 10 MG TABLET PO SCH (09:25)
[2016-12-08 16:00] VITALS: BP 140/86
[2016-12-09] MEDS: LORazepam 1 MG TABLET PO PRN ×6 (00:41→22:57)
[2016-12-09] MEDS: TraMADol HCL 50 MG TABLET PO PRN ×4 (00:41→19:21)
[2016-12-09 00:42] VITALS: BP 128/88
[2016-12-09] MEDS: LISINOPRIL 10 MG TABLET PO SCH (08:43)
[2016-12-09] MEDS: PANTOPRAZOLE SODIUM 40 MG DR TABLET PO SCH (08:43)
[2016-12-09] MEDS: VENLAFAXINE HCL 150 MG ER CAPSULE PO SCH (08:43)
[2016-12-09] MEDS: GABAPENTIN 300 MG CAPSULE PO SCH ×3 (08:44→16:25)
[2016-12-09 08:45] VITALS: BP 129/85
[2016-12-09] MEDS: QUEtiapine FUMARATE 100 MG TABLET PO SCH ×2 (08:45→16:26)
[2016-12-09] MEDS: CHOLECALCIFEROL (VIT D3) 1,000 UNITS TABLET PO SCH (08:47)
[2016-12-09] MEDS: NICOTINE 21 MG/24 HOUR PATCH TD SCH (08:47)
[2016-12-09] MEDS: BACLOFEN 10 MG TABLET PO SCH ×2 (08:50→16:25)
[2016-12-09] MEDS: IBUPROFEN 600 MG TABLET PO PRN (11:23)
[2016-12-09 16:00] VITALS: BP 128/67
[2016-12-09] MEDS: ZOLPIDEM TARTRATE 10 MG TABLET PO PRN (20:25)
[2016-12-10 01:21] VITALS: BP 104/73
[2016-12-10] MEDS: TraMADol HCL 50 MG TABLET PO PRN ×4 (01:35→20:57)
[2016-12-10] MEDS: LORazepam 1 MG TABLET PO PRN ×4 (05:15→18:29)
[2016-12-10 08:25] VITALS: BP 134/87
[2016-12-10] MEDS: VENLAFAXINE HCL 150 MG ER CAPSULE PO SCH (08:27)
[2016-12-10] MEDS: PANTOPRAZOLE SODIUM 40 MG DR TABLET PO SCH (08:27)
[2016-12-10] MEDS: GABAPENTIN 300 MG CAPSULE PO SCH ×3 (08:27→16:08)
[2016-12-10] MEDS: CHOLECALCIFEROL (VIT D3) 1,000 UNITS TABLET PO SCH (08:27)
[2016-12-10] MEDS: LISINOPRIL 10 MG TABLET PO SCH (08:27)
[2016-12-10] MEDS: BACLOFEN 10 MG TABLET PO SCH ×2 (08:27→16:08)
[2016-12-10] MEDS: NICOTINE 21 MG/24 HOUR PATCH TD SCH (08:28)
[2016-12-10] MEDS: QUEtiapine FUMARATE 100 MG TABLET PO SCH ×2 (08:28→16:08)
[2016-12-10 16:00] VITALS: BP 138/84
[2016-12-10] MEDS: ZOLPIDEM TARTRATE 10 MG TABLET PO PRN (20:12)
[2016-12-11 00:25] VITALS: BP 124/79
[2016-12-11] MEDS: LORazepam 1 MG TABLET PO PRN ×3 (00:32→10:09)
[2016-12-11 03:12] VITALS: BP 117/77
[2016-12-11] MEDS: TraMADol HCL 50 MG TABLET PO PRN ×2 (03:16→09:18)
[2016-12-11 08:00] VITALS: BP 134/83
[2016-12-11] MEDS: PANTOPRAZOLE SODIUM 40 MG DR TABLET PO SCH (08:08)
[2016-12-11] MEDS: LISINOPRIL 10 MG TABLET PO SCH (08:08)
[2016-12-11] MEDS: GABAPENTIN 300 MG CAPSULE PO SCH ×3 (08:08→16:06)
[2016-12-11] MEDS: CHOLECALCIFEROL (VIT D3) 1,000 UNITS TABLET PO SCH (08:08)
[2016-12-11] MEDS: NICOTINE 21 MG/24 HOUR PATCH TD SCH (08:09)
[2016-12-11] MEDS: QUEtiapine FUMARATE 100 MG TABLET PO SCH ×2 (09:00→16:06)
[2016-12-11 09:15] VITALS: BP 124/80
[2016-12-11] MEDS: VENLAFAXINE HCL 150 MG ER CAPSULE PO SCH (10:09)
[2016-12-11] MEDS: BACLOFEN 10 MG TABLET PO SCH ×2 (10:10→16:06)
[2016-12-11 16:00] VITALS: BP 141/88
[2016-12-11] MEDS: IBUPROFEN 600 MG TABLET PO PRN (17:55)
[2016-12-11] MEDS: ZOLPIDEM TARTRATE 10 MG TABLET PO PRN (20:30)
[2016-12-12 06:20] VITALS: BP 139/79
[2016-12-12] MEDS: BACLOFEN 10 MG TABLET PO SCH ×2 (08:55→16:01)
[2016-12-12] MEDS: GABAPENTIN 300 MG CAPSULE PO SCH ×3 (08:55→16:01)
[2016-12-12] MEDS: QUEtiapine FUMARATE 100 MG TABLET PO SCH ×2 (08:55→16:03)
[2016-12-12] MEDS: LISINOPRIL 10 MG TABLET PO SCH (08:56)
[2016-12-12] MEDS: VENLAFAXINE HCL 150 MG ER CAPSULE PO SCH (08:56)
[2016-12-12] MEDS: PANTOPRAZOLE SODIUM 40 MG DR TABLET PO SCH (08:56)
[2016-12-12] MEDS: CHOLECALCIFEROL (VIT D3) 1,000 UNITS TABLET PO SCH (08:56)
[2016-12-12] MEDS: NICOTINE 21 MG/24 HOUR PATCH TD SCH (08:56)
[2016-12-12 09:04] VITALS: BP 134/81
[2016-12-12] MEDS: IBUPROFEN 600 MG TABLET PO PRN (09:04)
[2016-12-12 10:21] VITALS: BP 132/86
[2016-12-12] MEDS ORDERED: BACL10TA PO (15:10)
[2016-12-12] MEDS ORDERED: LISI-661 PO (15:10)
[2016-12-12 16:25] VITALS: BP 137/81
== END 2016-12-12 17:20 | disposition home or self-care (01) | DRG 750 ==
LOC: EDSTATUS 23:13 → B3A 12-04 02:22 → B2S 12-11 20:23
PROVIDERS: ADMIT Psychiatry & Neurology Psychiatry; ATTEND Psychiatry & Neurology Psychiatry
DX: F25.9 Schizoaffective disorder, unspecified (principal); R45.851 Suicidal ideations; I10 Essential (primary) hypertension; F32.9 Major depressive disorder, single episode, unspecified; E55.9 Vitamin D deficiency, unspecified; B18.2 Chronic viral hepatitis C; Z28.21 Immunization not carried out because of patient refusal; F19.21 Other psychoactive substance dependence, in remission; F17.200 Nicotine dependence, unspecified, uncomplicated; G47.00 Insomnia, unspecified; G89.29 Other chronic pain; J44.9 Chronic obstructive pulmonary disease, unspecified; K21.9 Gastro-esophageal reflux disease without esophagitis; M54.5 Low back pain; Z79.899 Other long term (current) drug therapy; Z71.6 Tobacco abuse counseling
CPT/HCPCS: 80074; 84439; 84443

== ENCOUNTER 2017-09-06 23:39 | Inpatient (IN) | payer MEDICAID, OTHER ==
[~2017-09-06] VITALS: Ht 160 cm; Wt 68.7 kg
[~2017-09-06 23:39] MED LIST changes: +BACL10TA PO; +LISI-661 PO
[2017-09-06] MEDS ORDERED: ATOM40 PO (23:58)
[2017-09-06] MEDS ORDERED: NAPR-58 PO (23:58)
[2017-09-06] MEDS ORDERED: DIVA500T52 PO (23:58)
[2017-09-06] MEDS ORDERED: CLON-570 PO (23:58)
[2017-09-06] MEDS ORDERED: PARO20TA24 PO (23:58)
[2017-09-06] MEDS ORDERED: MIRALAX PO (23:58)
[2017-09-06] MEDS ORDERED: CHLO25 PO (23:58)
[2017-09-07] VITALS (8 sets, daily range): BP systolic 92–117; BP diastolic 55–75
[2017-09-07] MEDS ORDERED: GABA-533 PO (00:01)
[2017-09-07 00:26] LABS: BASOPHILS % (AUTO) 0.4 % (0.0-2.0); EOSINOPHILS % (AUTO) 2.6 % (1.0-6.0); HEMATOCRIT 41.3 % (41-53); HEMOGLOBIN 14.5 g/dL (13.5-17.5); LYMPHOCYTES # (AUTO) 1.7 K/uL (1.0-4.8); LYMPHOCYTES % (AUTO) 21.4 % (22.0-44.0); MEAN CORPUSCULAR HEMOGLOBIN 30.2 pg (26.0-34.0); MEAN CORPUSCULAR HGB CONC 35.2 G/dL (31.0-37.0); MEAN CORPUSCULAR VOLUME 86 fL (80-100); MONOCYTES # (AUTO) 1.2 K/uL (0.1-1.0); MONOCYTES % (AUTO) 15.2 % (2.0-9.0); NEUTROPHILS # (AUTO) 4.7 K/uL (1.8-7.7); NEUTROPHILS % (AUTO) 60.4 % (40.0-70.0); PLATELET COUNT (AUTO) 207 K/uL (150-450); RED CELL DISTRIBUTION WIDTH 15.9 % (11.5-14.5)
[2017-09-07 00:39] LABS: CALCIUM, TOTAL 9.1 mg/dL (8.8-10.5); CREATININE 3.51 mg/dL (0.60-1.30); POTASSIUM 4.4 mmol/L (3.5-5.1)
[2017-09-07 00:43] LABS: ALBUMIN 3.7 g/dL (3.4-5.0); BILIRUBIN,TOTAL 0.7 mg/dL (0.1-1.0); TOTAL PROTEIN, SERUM 6.9 g/dL (6.4-8.2)
[2017-09-07] MEDS ORDERED: SODIUM CHLORIDE 0.9% 2,000 ML IV ONE (01:00)
[2017-09-07] MEDS ORDERED: ONDANSETRON HCL 4 MG/2 ML VIAL IVP PRN ×2 (01:00→08:30)
[2017-09-07] MEDS ORDERED: 0.9% SODIUM CHLORIDE 10 ML SYRINGE IVP PRN ×2 (01:00→08:30)
[2017-09-07] MEDS ORDERED: ACETAMINOPHEN 325 MG TABLET PO PRN (01:00)
[2017-09-07] MEDS ORDERED: ZOLPIDEM TARTRATE 5 MG TABLET PO PRN (08:30)
[2017-09-07] MEDS ORDERED: ChlorproMAZINE HCL 25 MG TABLET PO PRN (08:30)
[2017-09-07] MEDS: BACLOFEN 10 MG TABLET PO SCH ×2 (08:59→20:15)
[2017-09-07] MEDS: PANTOPRAZOLE SODIUM 40 MG DR TABLET PO SCH (08:59)
[2017-09-07] MEDS: HEPARIN SODIUM,PORCINE 5,000 UNITS/ML VIAL SQ SCH ×3 (08:59→23:54)
[2017-09-07] MEDS: SODIUM CHLORIDE 0.9% 1,000 ML IV SCH ×2 (08:59→20:20)
[2017-09-07] MEDS: CloNIDine HCL 0.1 MG TABLET PO SCH ×4 (09:00→20:21)
[2017-09-07] MEDS ORDERED: GABAPENTIN 300 MG CAPSULE PO SCH (09:00)
[2017-09-07] MEDS ORDERED: GABAPENTIN 400 MG CAPSULE PO SCH (09:00)
[2017-09-07] MEDS ORDERED: ATOMOXETINE HCL 40 MG CAPSULE PO SCH (09:00)
[2017-09-07] MEDS ORDERED: PANTOPRAZOLE SODIUM 40 MG/VIAL IVP SCH (09:00)
[2017-09-07 10:26] LABS: ANION GAP 2 mmol/L (8-16); CALCIUM, TOTAL 8.4 mg/dL (8.8-10.5); CARBON DIOXIDE 34 mmol/L (22-29); CHLORIDE 103 mmol/L (98-107); CREATINE KINASE MB 1.6 ng/mL (0-5); CREATINE KINASE, TOTAL 103 U/L (39-308); CREATININE 1.91 mg/dL (0.60-1.30); GLOMERULAR FILTR. RATE CALC 38 mL/min (>60); GLUCOSE,RANDOM 108 mg/dL (70-110); POTASSIUM 3.6 mmol/L (3.5-5.1); SODIUM SERUM 139 mmol/L (136-145); UREA NITROGEN, BLOOD 56 mg/dL (7-18)
[2017-09-07] MEDS: ATOMOXETINE HCL 10 MG CAPSULE PO SCH (11:12)
[2017-09-07] MEDS ORDERED: QUEtiapine FUMARATE 100 MG TABLET PO PRN (15:15)
[2017-09-07] MEDS: PARoxetine HCL 20 MG TABLET PO SCH (20:15)
[2017-09-07] MEDS: QUEtiapine FUMARATE 200 MG TABLET PO SCH (20:15)
[2017-09-07] MEDS: DIVALPROEX SODIUM 500 MG ER TABLET PO SCH (20:15)
[2017-09-08] VITALS (8 sets, daily range): BP systolic 82–138; BP diastolic 48–89
[2017-09-08] MEDS: SODIUM CHLORIDE 0.9% 1,000 ML IV SCH (05:34)
[2017-09-08 06:52] LABS: BASOPHILS % (AUTO) 0.3 % (0.0-2.0); EOSINOPHILS % (AUTO) 4.6 % (1.0-6.0); HEMATOCRIT 35.6 % (41-53); HEMOGLOBIN 12.5 g/dL (13.5-17.5); LYMPHOCYTES # (AUTO) 1.8 K/uL (1.0-4.8); LYMPHOCYTES % (AUTO) 48.2 % (22.0-44.0); MEAN CORPUSCULAR HEMOGLOBIN 30.5 pg (26.0-34.0); MEAN CORPUSCULAR HGB CONC 35.2 G/dL (31.0-37.0); MEAN CORPUSCULAR VOLUME 86 fL (80-100); MONOCYTES # (AUTO) 0.6 K/uL (0.1-1.0); MONOCYTES % (AUTO) 16.1 % (2.0-9.0); NEUTROPHILS # (AUTO) 1.1 K/uL (1.8-7.7); NEUTROPHILS % (AUTO) 30.8 % (40.0-70.0); PLATELET COUNT (AUTO) 164 K/uL (150-450); RED BLOOD CELL COUNT(AUTO) 4.12 MIL/uL (4.50-5.90); RED CELL DISTRIBUTION WIDTH 16.2 % (11.5-14.5)
[2017-09-08] MEDS: CloNIDine HCL 0.1 MG TABLET PO SCH (08:07)
[2017-09-08] MEDS: ATOMOXETINE HCL 10 MG CAPSULE PO SCH (08:17)
[2017-09-08] MEDS: BACLOFEN 10 MG TABLET PO SCH (08:17)
[2017-09-08] MEDS: HEPARIN SODIUM,PORCINE 5,000 UNITS/ML VIAL SQ SCH ×2 (08:17→17:44)
[2017-09-08] MEDS: PANTOPRAZOLE SODIUM 40 MG DR TABLET PO SCH (08:17)
[2017-09-08 10:54] LABS: ANION GAP 2 mmol/L (8-16); CALCIUM, TOTAL 8.3 mg/dL (8.8-10.5); CARBON DIOXIDE 33 mmol/L (22-29); CHLORIDE 108 mmol/L (98-107); CREATINE KINASE, TOTAL 41 U/L (39-308); CREATININE 0.96 mg/dL (0.60-1.30); GLOMERULAR FILTR. RATE CALC > 60 mL/min (>60); GLUCOSE,RANDOM 85 mg/dL (70-110); PHOSPHORUS 2.5 mg/dL (2.5-4.9); POTASSIUM 4.4 mmol/L (3.5-5.1); SODIUM SERUM 143 mmol/L (136-145)
[2017-09-08 11:12] LABS: UREA NITROGEN, BLOOD 33 mg/dL (7-18)
[2017-09-08] MEDS ORDERED: CloNIDine HCL 0.1 MG TABLET PO PRN (11:15)
[2017-09-08] MEDS ORDERED: MAGNESIUM OXIDE 400 MG TABLET PO ONE (11:15)
[2017-09-08] MEDS ORDERED: MAGNESIUM SULFATE 1 GM in DEXTROSE 5%-WATER 50 ML IV ONE ×2 (11:45→17:15)
[2017-09-08] MEDS ORDERED: ACETAMINOPHEN 325 MG TABLET PO PRN (16:45)
[2017-09-08] MEDS: HYDROCODONE/ACETAMINOPHEN 5-325 MG TABLET PO PRN (17:44)
[2017-09-08 20:05] LABS: APPEARANCE,URINE CLEAR (CLEAR); BILIRUBIN,URINE NEGATIVE (NEGATIVE); GLUCOSE, URINE (UA) NEGATIVE (NEGATIVE); KETONES,URINE NEGATIVE (NEGATIVE); LEUKOCYTE ESTERASE ,URINE NEGATIVE (NEGATIVE); NITRATE,URINE NEGATIVE (NEGATIVE); OCCULT BLOOD,URINE NEGATIVE (NEGATIVE); PH,URINE 7.5 (5.0-8.0); PROTEIN,URINE NEGATIVE (NEGATIVE); UROBILINOGEN,URINE 0.2 mg/dL (<=1.0)
[2017-09-08] MEDS: QUEtiapine FUMARATE 200 MG TABLET PO SCH (20:12)
[2017-09-08] MEDS: PARoxetine HCL 20 MG TABLET PO SCH (20:12)
[2017-09-08] MEDS: DIVALPROEX SODIUM 500 MG ER TABLET PO SCH (20:13)
[2017-09-09] MEDS: HEPARIN SODIUM,PORCINE 5,000 UNITS/ML VIAL SQ SCH ×3 (01:01→08:13)
[2017-09-09 04:15] VITALS: BP 94/56
[2017-09-09] MEDS: PANTOPRAZOLE SODIUM 40 MG DR TABLET PO SCH (08:13)
[2017-09-09] MEDS: ATOMOXETINE HCL 10 MG CAPSULE PO SCH (08:13)
[2017-09-09 08:14] VITALS: BP 134/87
[2017-09-09 12:39] VITALS: BP 116/55
[2017-09-09] MEDS: HYDROCODONE/ACETAMINOPHEN 5-325 MG TABLET PO PRN (13:14)
== END 2017-09-09 14:52 | DRG 48 ==
LOC: EMS 23:40 → 6N 09-07 01:03
PROVIDERS: ADMIT Internal Medicine; ATTEND Internal Medicine
DX: G90.8 Other disorders of autonomic nervous system (principal); N17.9 Acute kidney failure, unspecified; M62.82 Rhabdomyolysis; I95.9 Hypotension, unspecified; E83.42 Hypomagnesemia; F20.9 Schizophrenia, unspecified; E86.0 Dehydration; F90.9 Attention-deficit hyperactivity disorder, unspecified type; F31.9 Bipolar disorder, unspecified; I12.9 Hypertensive chronic kidney disease with stage 1 through stage 4 chronic kidney disease, or unspecified chronic kidney disease; N18.9 Chronic kidney disease, unspecified; K21.9 Gastro-esophageal reflux disease without esophagitis; M19.90 Unspecified osteoarthritis, unspecified site; T39.395A Adverse effect of other nonsteroidal anti-inflammatory drugs [NSAID], initial encounter; Z91.19 Patient's noncompliance with other medical treatment and regimen; Z79.899 Other long term (current) drug therapy
CPT/HCPCS: 76770; 83735; 84100; 87081; 93005; 96360; 99285; J1644; J3475; J7030; J7060